=== PATIENT | female | born 1995 | race African-American/Black ===

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

== ENCOUNTER 2017-01-02 20:33 | Emergency (ER) | payer OTHER ==
[~2017-01-02] VITALS: Ht 154.9 cm; Wt 2.3 kg
[2017-01-02 21:55] VITALS: BP 140/81; TEMP 98.1
== END 2017-01-02 22:00 | disposition home or self-care (01) ==
LOC: ED 20:33
DX: Z76.5 Malingerer [conscious simulation] (principal)
CPT/HCPCS: 99281

== ENCOUNTER 2017-10-09 20:48 | Emergency (ER) | payer OTHER ==
[~2017-10-09] VITALS: Ht 154.9 cm; Wt 74.4 kg
[2017-10-09 23:17] LABS: PLATELET COUNT 223 K/uL (152-353)
[2017-10-09 23:20] LABS: POTASSIUM 3.7 mmol/L (3.6-5.2); SODIUM 136 mmol/L (136-145)
[2017-10-10 02:33] VITALS: BP 151/89; TEMP 97.9
== END 2017-10-10 02:35 | disposition home or self-care (01) ==
LOC: ED 20:48
DX: R10.9 Unspecified abdominal pain (principal)
CPT/HCPCS: 36415; 80053; 81000; 81025; 82150; 83690; 85027; 86318; 99283; Q9963

== ENCOUNTER 2017-11-02 13:41 | Outpatient (CLI) | payer OTHER | END 2017-11-02 13:47 | disposition short-term general hospital (02) | LOC: AMB 13:41 | DX: R10.84 Generalized abdominal pain (principal); R11.10 Vomiting, unspecified | CPT/HCPCS: A0425; A0429 ==

== ENCOUNTER 2017-11-02 13:50 | Emergency (ER) | payer OTHER | END 2017-11-02 14:30 | disposition home or self-care (01) | LOC: ED 13:50 | DX: R11.10 Vomiting, unspecified (principal); R19.7 Diarrhea, unspecified | CPT/HCPCS: 99281 ==

== ENCOUNTER 2018-06-06 17:09 | Emergency (ER) | payer OTHER ==
[~2018-06-06] VITALS: Ht 154.9 cm; Wt 68.5 kg
[2018-06-06 17:19] VITALS: BP 118/70; TEMP 98.7
== END 2018-06-06 18:01 | disposition home or self-care (01) ==
LOC: ED 17:09
DX: S61.531A Puncture wound without foreign body of right wrist, initial encounter (principal); S60.861A Insect bite (nonvenomous) of right wrist, initial encounter; W57.XXXA Bitten or stung by nonvenomous insect and other nonvenomous arthropods, initial encounter; Y93.89 Activity, other specified; Y92.89 Other specified places as the place of occurrence of the external cause
CPT/HCPCS: 99281